=== PATIENT | male | born 1980 | race American Indian/Alaskan Native ===

== ENCOUNTER 2016-10-13 22:49 | Emergency (ER) | payer OTHER ==
[2016-10-13 23:12] VITALS: BP 121/67
--- NOTE | 2016-10-13 23:20 | EDM.PDOC ---
ED HPI GENERAL MEDICAL PROBLEM - General Chief Complaint: Headache Stated Complaint: [facility] Time Seen by Provider: 10/13/16 23:19 - History of Present Illness INITIAL COMMENTS - FREE TEXT/NARRATIVE: 36-year-old male brought in by EMS with a severe headache. Patient has a remarkable history of having a stroke 2 months ago. This left him with fairly good motor function he has a significant expressive aphasia but he can work through it intercommunicate fairly well muscle strength is fairly well spared. Patient's headache was fairly sudden onset started a couple hours before coming in. But it is described as global he has associated photosensitivity and and is very sensitive to noise. The patient has a funny sensation all over and just generally feels shaky. This was worsened after he received his Zofran and Benadryl. After the patient stroke he was started on atorvastatin, clopidogrel and aspirin area he was recently started on Topamax. Headache Pain Score (Numeric/FACES): 9 - Related Data Allergies Allergy/AdvReac Type Severity Reaction Status Date / Time aspirin Allergy Lightheaded Verified 10/13/16 22:55 ness Home Meds: Home Meds GI Cocktail 30 ml PO TID PRN #300 ml 11/08/15 [Rx] Lactobac Cmb #3/Fos/Pantethine [Probiotic & Acidophilus] 2 tab PO TID 11/08/15 [ History] Mag Hydrox/Al Hydrox/Simeth [Maalox Maximum Strength Susp] 1 dose PO ASDIRECTED 11/08/15 [History] Ondansetron [Zofran ODT] 4 mg PO Q6H PRN #20 tab.dis 11/08/15 [Rx] Sucralfate [Carafate] 1 gm PO TIDAC PRN #20 tablet 11/08/15 [Rx] oxyCODONE HCl/Acetaminophen [Percocet 5-325 mg Tablet] 1 - 2 each PO Q6HR PRN # 20 tablet 11/08/15 [Rx] Past Medical History HEENT History: Reports: Hard of Hearing, Impaired Vision Other HEENT History: Bilateral hearing aids, wears glasses Gastrointestinal History: Reports: Diverticulosis, Other (See Below) Other Gastrointestinal History: gastric bypass Endocrine/Metabolic History: Reports: Obesity/BMI 30+ Other Endocrine/Metabolic History: hypoglycemia - Past Surgical History GI Surgical History: Reports: Appendectomy, Bariatric Procedure, Colostomy Social & Family History - Tobacco Use Smoking Status *Q: Current Every Day Smoker Years of Tobacco use: 30 Packs/Tins Daily: 1 - Caffeine Use Caffeine Use: Reports: None - Recreational Drug Use Recreational Drug Use: No - Living Situation & Occupation Living situation: Reports: Single Occupation: Unemployed ED ROS GENERAL - Review of Systems Review Of Systems: See Below Constitutional: Reports: No Symptoms HEENT: Reports: No Symptoms, Other (He did have noise sensitivity and light sensitivity with a headache) Respiratory: Reports: No Symptoms Cardiovascular: Reports: No Symptoms. Denies: Chest Pain Endocrine: Reports: No Symptoms GI/Abdominal: Reports: No Symptoms : Reports: No Symptoms Musculoskeletal: Reports: No Symptoms Skin: Reports: No Symptoms Neurological: Reports: Headache. Denies: Confusion, Dizziness, Numbness, Seizure Psychiatric: Reports: No Symptoms. Denies: Agitation, Anxiety, Confusion, Mood Lability, Suicidal Ideation - Physical Exam Exam: See Below Exam Limited By: Other (The patient has an expressive aphasia however he is able to work around it by going slow and methodical) General Appearance: Alert, No Apparent Distress, Obese, Other (Before his headache resolved he was photophobic and very sensitive to noise) Eye Exam: Bilateral Eye: EOMI, Normal Inspection, PERRL Ears: Normal External Exam, Normal Canal, Hearing Grossly Normal, Normal TMs, Other (Evidence of chronic ear infections) Nose: Normal Inspection Throat/Mouth: Normal Inspection, Normal Oropharynx, Normal Voice, No Airway Compromise Head Exam: Atraumatic, Normocephalic Neck: Normal Inspection, Supple, Non-Tender, Full Range of Motion. No: Lymphadenopathy (L), Lymphadenopathy (R) Respiratory/Chest: No Respiratory Distress, Lungs Clear, Normal Breath Sounds Cardiovascular: Regular Rate, Rhythm, No Edema, No Murmur GI/Abdominal: Normal Bowel Sounds, Soft, Non-Tender, Other (Morbid obesity) Neuro Exam (Abbreviated): Other (Cranial nerves II through XII grossly intact he has an obvious expressive aphasia all muscle groups the upper extremities recall appropriate deep tendon reflexes are equal and appropriate at the brachial radialis bilaterally) Back Exam: Normal Inspection. No: CVA Tenderness (L), CVA Tenderness (R) Extremities: Normal Inspection, No Pedal Edema Psychiatric: Normal Affect, Normal Mood Course - Vital Signs Last Recorded V/S: Last Vital Signs Temp 36.7 C 08/29/17 22:56 Pulse 79 10/13/16 22:56 Resp 18 10/13/16 22:56 BP 121/67 10/13/16 22:56 Pulse Ox 97 10/13/16 22:56 - Orders/Labs/Meds Orders: Active Orders 24 hr Category Date Time Status EKG Documentation Completion [RC] STAT Care 10/14/16 00:10 Active Chest 1V Frontal [CR] Stat Exams 10/14/16 00:10 Taken Head wo Cont [CT] Stat Exams 10/13/16 23:16 Ordered Labs: Laboratory Tests 10/13/16 10/13/16 10/13/16 Range/Units 23:22 23:22 23:22 WBC 10.83 H (4.23-9.07) K/mm3 RBC 5.74 (4.63-6.08) M/mm3 Hgb 13.2 L (13.7-17.5) gm/L Hct 40.7 (40.1-51.0) % MCV 70.9 L (79.0-92.2) fl MCH 23.0 L (25.7-32.2) pg MCHC 32.4 (32.2-35.5) g/dl RDW Std Deviation 53.1 H (35.1-43.9) fL Plt Count 266 (163-337) K/mm3 MPV 10.0 (9.4-12.3) fl Neut % (Auto) 70.5 H (34.0-67.9) % Lymph % (Auto) 18.5 L (21.8-53.1) % [place] % (Auto) 8.8 (5.3-12.2) % Eos % (Auto) 1.7 (0.8-7.0) Baso % (Auto) 0.3 (0.1-1.2) % Neut # (Auto) 7.65 H (1.78-5.38) K/mm3 Lymph # (Auto) 2.00 (1.32-3.57) K/mm3 [place] # (Auto) 0.95 H (0.30-0.82) K/mm3 Eos # (Auto) 0.18 (0.04-0.54) K/mm3 Baso # (Auto) 0.03 (0.01-0.08) K/mm3 Manual Slide Review Abnormal smear PT 10.5 (8.0-13.0) SECONDS INR 0.97 APTT 25 (22-36) SECONDS Sodium 140 (136-145) mEq/L Potassium 3.5 (3.5-5.1) mEq/L Chloride 106 (98-107) mEq/L Carbon Dioxide 26 (21-32) mEq/L Anion Gap 11.5 (5-15) BUN 6 L (7-18) mg/dL Creatinine 0.9 (0.7-1.3) mg/dL Est Cr Clr Drug Dosing 118.53 mL/min Estimated GFR (MDRD) > 60 (>60) mL/min BUN/Creatinine Ratio 6.7 L (14-18) Glucose 92 (74-106) mg/dL POC Glucose (70-105) mg/dL Calcium 8.9 (8.5-10.1) mg/dL Troponin I (0.00-0.056) ng/mL 10/13/16 10/14/16 Range/Units 23:22 00:18 WBC (4.23-9.07) K/mm3 RBC (4.63-6.08) M/mm3 Hgb (13.7-17.5) gm/L Hct (40.1-51.0) % MCV (79.0-92.2) fl MCH (25.7-32.2) pg MCHC (32.2-35.5) g/dl RDW Std Deviation (35.1-43.9) fL Plt Count (163-337) K/mm3 MPV (9.4-12.3) fl Neut % (Auto) (34.0-67.9) % Lymph % (Auto) (21.8-53.1) % [place] % (Auto) (5.3-12.2) % Eos % (Auto) (0.8-7.0) Baso % (Auto) (0.1-1.2) % Neut # (Auto) (1.78-5.38) K/mm3 Lymph # (Auto) (1.32-3.57) K/mm3 [place] # (Auto) (0.30-0.82) K/mm3 Eos # (Auto) (0.04-0.54) K/mm3 Baso # (Auto) (0.01-0.08) K/mm3 Manual Slide Review PT (8.0-13.0) SECONDS INR APTT (22-36) SECONDS Sodium (136-145) mEq/L Potassium (3.5-5.1) mEq/L Chloride (98-107) mEq/L Carbon Dioxide (21-32) mEq/L Anion Gap (5-15) BUN (7-18) mg/dL Creatinine (0.7-1.3) mg/dL Est Cr Clr Drug Dosing mL/min Estimated GFR (MDRD) (>60) mL/min BUN/Creatinine Ratio (14-18) Glucose (74-106) mg/dL POC Glucose 83 (70-105) mg/dL Calcium (8.5-10.1) mg/dL Troponin I < 0.017 (0.00-0.056) ng/mL Meds: Medications Discontinued Medications Generic Name Dose Route Start Last Admin Trade Name Freq PRN Reason Stop Dose Admin Diphenhydramine HCl 50 mg 10/13/16 23:36 10/13/16 23:40 Benadryl IVPUSH 10/13/16 23:37 50 mg ONETIME ONE Administration Ondansetron HCl 4 mg 10/13/16 23:36 10/13/16 23:40 Zofran IVPUSH 10/13/16 23:37 4 mg ONETIME ONE Administration - Re-Assessments/Exams Free Text/Narrative Re-Assessment/Exam: 10/14/16 01:08 Patient was initially evaluated in his symptoms are somewhat concerning he was sent to CT. Patient was given Benadryl and Zofran at about the time he got this his headache resolved. When he came back from CT he was a little shaky. EKG shows normal sinus rhythm mild baseline artifact axis and intervals normal no acute ST-T wave changes he has some mild nondiagnostic ST-T wave changes head CT shows some encephalomalacia in the left insular cortex and in the left temporal lobe as well as the right parietal occipital lobe portable chest x-ray shows dextrocardia no acute changes. Laboratory evaluation is unrevealing 10/14/16 02:22 Patient is doing well at this time no headache he feels back to normal. He's been able to eat and drink we will discharge. Departure - Departure Time of Disposition: 02:22 Disposition: Home, Self-Care 01 Clinical Impression: Headache, Shakiness - Discharge Information Referrals: PCP,None [Primary Care Provider] - Forms: ED Department Discharge Additional Instructions: Return to the emergency room with any questions problems worsening symptoms. Follow-up with your regular provider later this week for recheck. You need to carry a list of all of your medications with doses. Eat regular meals with snacks in between and a snack at bedtime. Drink plenty of fluids. - My Orders Last 24 Hours: My Active Orders 10/13/16 23:16 Head wo Cont [CT] Stat 10/14/16 00:10 EKG Documentation Completion [RC] STAT Chest 1V Frontal [CR] Stat - Assessment/Plan Last 24 Hours: My Active Orders 10/13/16 23:16 Head wo Cont [CT] Stat 10/14/16 00:10 EKG Documentation Completion [RC] STAT Chest 1V Frontal [CR] Stat
[2016-10-13] MEDS ORDERED: diphenhydrAMINE 50 MG/ML SDV IVPUSH ONE (23:36)
[2016-10-13] MEDS ORDERED: Ondansetron 4 MG/2 ML SDV IVPUSH ONE (23:36)
--- NOTE | 2016-10-15 09:23 | CT ---
Head CT Technique: Multiple axial sections through the brain were obtained. Intravenous contrast was not utilized. Comparison: No previous head CT. Findings: Encephalomalacia presumably representing old infarct is seen within the left temporal lobe, insular cortex and portion of the posterior left parietal region. Smaller area of encephalomalacia is seen within the posterior right parietal-occipital regions likely representing additional infarct. Ventricles along with basal cisterns and sulci over the convexities are mildly prominent. No other abnormal parenchymal densities are seen. No evidence of intracranial hemorrhage. No midline shift or mass effect is seen. Bone window settings were reviewed which show several small retention cyst within the maxillary sinus which is felt to be incidental. No acute calvarial abnormality is seen. Impression: 1. Findings of encephalomalacia on both sides most likely representing old infarcts. 2. Minimal sinus findings which are felt to be incidental. 3. No acute intracranial abnormality is appreciated. Diagnostic code #2 I agree with preliminary report issued by [facility] ([facility] preliminary report dictated on 10/14/16, 1:16 AM Central Time) ZENIA
--- NOTE | 2016-10-15 09:25 | CR ---
Chest: Portable view of the chest was obtained. Comparison: Previous chest x-ray of 11/04/15. Heart size is slightly enlarged which is felt compatible with change from portable technique. Upper mediastinum felt to be within normal limits. Lungs are clear. Bony structures are grossly intact. Impression: 1. Nothing acute is definitely seen on portable chest x-ray. Diagnostic code #2 MTDD
== END 2016-10-14 05:47 | disposition home or self-care (01) ==
LOC: JD.ED 22:49
DX: R51 Headache (principal); R25.8 Other abnormal involuntary movements; E66.9 Obesity, unspecified; Z98.84 Bariatric surgery status; Z90.49 Acquired absence of other specified parts of digestive tract; F17.210 Nicotine dependence, cigarettes, uncomplicated; Z93.3 Colostomy status; Z88.6 Allergy status to analgesic agent; Z79.02 Long term (current) use of antithrombotics/antiplatelets; Z68.43 Body mass index [BMI] 50.0-59.9, adult
CPT/HCPCS: 36415; 70450; 71010; 80048; 82962; 84484; 85025; 85610; 85730; 93005; 96374; 96375; 99285; J1200; J2405; 99284

== ENCOUNTER 2017-07-24 20:28 | Emergency (ER) | payer OTHER ==
[2017-07-24 20:43] VITALS: BP 130/73
--- NOTE | 2017-07-24 22:48 | EDM.PDOC ---
ED HPI GENERAL MEDICAL PROBLEM - General Chief Complaint: Neurological Problem Stated Complaint: [facility] Time Seen by Provider: 07/24/17 21:44 Source of Information: Reports: Patient, Family (Sister, brother) History Limitations: Reports: Physical Impairment (Some cognitive difficulty) - History of Present Illness INITIAL COMMENTS - FREE TEXT/NARRATIVE: The patient states that he suffered a stroke around July 2016, leaving him with an expressive aphasia, left facial weakness, and weakness to his left hand. 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 The patient underwent routine blood work this past , 07/22/2017. He was called later that day, and instructed to go to the [place] ER, because his D-dimer was elevated. A CT angiogram of the chest was performed - a copy of the report was brought with the patient - indicating that he had a faint defect to a posterior segmental branch of the left upper lobe, which was interpreted as a tiny pulmonary embolus. No anticoagulation was started. The patient is now brought to the ED because of acting differently around 19:00 tonight. He states that he had a left-sided headache, consistent with a migraine , then became diaphoretic and flushed. He states that he couldn't see, and had difficulty understanding. His symptoms resolved around 20:00, en route to the ED , after he was given IVF per EMS. Here in the ED, he states that he has a bitemporal headache, achy in character. The patient has an appointment to see a Neurologist at [facility] on 2017. Left Headache Pain Score (Numeric/FACES): 3 - Related Data Allergies Allergy/AdvReac Type Severity Reaction Status Date / Time No Known Allergies Allergy Verified 07/24/17 20:44 Home Meds: Home Meds Aspirin 81 mg PO DAILY 07/24/17 [History] Cholecalciferol (Vitamin D3) [Vitamin D3] 5,000 unit PO DAILY 07/24/17 [History] Clopidogrel [Plavix] 75 mg PO DAILY 07/24/17 [History] Past Medical History HEENT History: Reports: Hard of Hearing, Impaired Vision Other HEENT History: Bilateral hearing aids, wears glasses Cardiovascular History: Reports: Other (See Below) (PFO) Gastrointestinal History: Reports: Diverticulosis Neurological History: Reports: CVA, Migraines Endocrine/Metabolic History: Reports: Obesity/BMI 30+ - Past Surgical History Respiratory Surgical History: Reports: Tracheostomy GI Surgical History: Reports: Appendectomy, Bariatric Procedure (Gastric bypass 2009), Colostomy (reversed), Hernia, Abdominal Social & Family History - Family History Cardiac: Reports: [facility] GI: Reports: Cirrhosis Endocrine/Metabolic: Reports: Diabetes, type II Oncologic: Reports: Brain, Lung - Tobacco Use Smoking Status *Q: Current Every Day Smoker Years of Tobacco use: 21 Packs/Tins Daily: 1 - Caffeine Use Caffeine Use: Reports: Coffee - Alcohol Use Alcohol Use History: Yes Alcohol Use Frequency: Socially (occasionally to excess) - Recreational Drug Use Recreational Drug Use: No - Living Situation & Occupation Living situation: Reports: Single, with Family (Brother) Occupation: Unemployed ED ROS GENERAL - Review of Systems Review Of Systems: ROS reveals no pertinent complaints other than HPI. ED EXAM, NEURO - Physical Exam Exam: See Below Exam Limited By: No Limitations General Appearance: Alert, WD/WN, No Apparent Distress Eye Exam: Bilateral Eye: Normal Inspection Ears: Normal External Exam, Hearing Grossly Normal, Hearing Loss Nose: Normal Inspection, No Blood Throat/Mouth: Normal Inspection, Normal Lips, Normal Voice, No Airway Compromise , Other (Very poor dentition) Head Exam: Atraumatic, Normocephalic Neck: Normal Inspection, Full Range of Motion Respiratory/Chest: No Respiratory Distress, Lungs Clear, Normal Breath Sounds, No Accessory Muscle Use Cardiovascular: Normal Peripheral Pulses, Regular Rate, Rhythm, No Gallop, No JVD, No Murmur, No Rub GI/Abdominal: Normal Bowel Sounds, Soft, Non-Tender, No Organomegaly, No Distention, No Abnormal Bruit, No Mass, Other (Obese) (Male) Exam: Deferred Rectal (Males) Exam: Deferred Neurological: Alert, Normal Dorsiflexion, CN II-XII Intact, Normal Plantar Flexion, No Motor/Sensory Deficits, Oriented x 3 Back Exam: Normal Inspection, Full Range of Motion, NT Extremities: Normal Inspection, Normal Range of Motion, Normal Capillary Refill Psychiatric: Other (Somewhat labile mood) Skin Exam: Warm, Dry, Intact, Normal Color, No Rash EKG INTERPRETATION EKG Date: 07/24/17 Time: 22:38 Rhythm: NSR Rate (Beats/Min): 75 [place]: Normal P-Wave: Present QRS: Normal (Early transition) ST-T: Normal QT: Normal Comparison: No Change (10/14/2016) Course - Vital Signs Last Recorded V/S: Last Vital Signs Temp 36.8 C 07/24/17 20:33 Pulse 81 07/24/17 20:33 Resp 16 07/24/17 20:33 BP 130/73 07/24/17 20:33 Pulse Ox 93 L 07/24/17 20:33 - Orders/Labs/Meds Labs: Laboratory Tests 07/24/17 07/24/17 Range/Units 22:40 22:40 WBC 10.11 H (4.23-9.07) K/mm3 RBC 5.92 (4.63-6.08) M/mm3 Hgb 13.0 L (13.7-17.5) gm/L Hct 41.3 (40.1-51.0) % MCV 69.8 L (79.0-92.2) fl MCH 22.0 L (25.7-32.2) pg MCHC 31.5 L (32.2-35.5) g/dl RDW Std Deviation 51.1 H (35.1-43.9) fL Plt Count 264 (163-337) K/mm3 MPV 9.5 (9.4-12.3) fl Neutrophils % (Manual) 67 H (40-60) % Band Neutrophils % 0 (0-10) % Lymphocytes % (Manual) 17 L (20-40) % Atypical Lymphs % 3 % Monocytes % (Manual) 13 H (2-10) % Eosinophils % (Manual) 0 L (0.8-7.0) % Basophils % (Manual) 0 L (0.2-1.2) Platelet Estimate Adequate Plt Morphology Comment Normal Poikilocytosis 1+ slight Anisocytosis 1+ slight Microcytosis 1+ slight Macrocytosis 1+ slight Ovalocytes 1+ slight RBC Morph Comment Abnormal Sodium 141 (136-145) mEq/L Potassium 4.0 (3.5-5.1) mEq/L Chloride 106 (98-107) mEq/L Carbon Dioxide 27 (21-32) mEq/L Anion Gap 12.0 (5-15) BUN 6 L (7-18) mg/dL Creatinine 0.9 (0.7-1.3) mg/dL Est Cr Clr Drug Dosing 117.37 mL/min Estimated GFR (MDRD) > 60 (>60) mL/min BUN/Creatinine Ratio 6.7 L (14-18) Glucose 93 (74-106) mg/dL Calcium 8.5 (8.5-10.1) mg/dL Magnesium 1.9 (1.8-2.4) mg/dl Total Bilirubin 0.5 (0.2-1.0) mg/dL AST 18 (15-37) U/L ALT 26 (16-63) U/L Alkaline Phosphatase 133 H (46-116) U/L Troponin I < 0.017 (0.00-0.056) ng/mL Total Protein 7.3 (6.4-8.2) g/dl Albumin 3.0 L (3.4-5.0) g/dl Globulin 4.2 gm/dL Albumin/Globulin Ratio 0.7 L (1-2) - Re-Assessments/Exams Free Text/Narrative Re-Assessment/Exam: 07/24/17 23:33 CT of the head without contrast is read by [facility] as: 1. Soft tissue density is again noted along the lateral wall to the right sphenoid sinus adjacent to the carotid canal. Although this may represent a small polyp versus retention cyst, however dehiscence of the sinus wall with protrusion of the right internal carotid artery into the sphenoid sinus is not totally excluded. No evidence of acute sinusitis. 2. No acute intracranial hemorrhage or mass effect. 07/25/17 00:15 Test results discussed with the patient, his brother, and sister. Today's workup is grossly unremarkable. He is not significantly anemic, his electrolytes are all normal, his troponin and ECG are unremarkable, and the CT scan of his head, while it shows abnormalities, does not demonstrate any new changes. I suspect that the patient's symptoms may have been related to a migraine, although it is unusual that they resolved with IV fluid alone, which suggests a psychiatric component. I believe the patient may safely be discharged home, and I requested that he follow-up with his PCP this week. Departure - Departure Time of Disposition: 00:17 Disposition: Home, Self-Care 01 Condition: Good Clinical Impression: Headache, Altered mental status, unspecified - Discharge Information Instructions: General Headache Without Cause, [id number] Referrals: PCP,Not In Area [Primary Care Provider] - Forms: ED Department Discharge Additional Instructions: You were seen in the emergency room after experiencing altered mental status and a headache. Workup in the ER included blood work, a CT scan of your head, and an ECG. Your entire workup was unremarkable, and does not explain the cause of your symptoms. It is possible that you suffered a migraine. We recommend that you continue your usual medications, as prescribed, then follow-up with your primary care physician this week. If any other problems, please do not hesitate to return to the ER.
--- NOTE | 2017-07-26 11:27 | CT ---
Head CT Technique: Multiple axial sections through the brain were obtained. Intravenous contrast was not utilized. Comparison: Prior head CT exam of 10/13/16. Findings: Old infarcts are noted within the left temporoparietal region and within the posterior right parietal region. No other abnormal parenchymal densities are seen. No evidence of intracranial hemorrhage. No midline shift or mass effect is seen. Ventricles along with basal cisterns and sulci over the convexities are mildly prominent. Soft tissue density is seen within the right sphenoid sinus which is believed to represent incidental retention cyst which is stable. Other visualized sinuses are clear. No acute calvarial abnormality is seen. Impression: 1. Old infarcts as noted above. 2. Stable retention cyst within the right sphenoid sinus. 3. No acute intracranial abnormality is identified. Diagnostic code #2 I agree with preliminary report issued by [facility] ([facility] preliminary report dictated on 07/25/17, 12:10 AM Central Time)
== END 2017-07-25 00:36 | disposition home or self-care (01) ==
LOC: JD.ED 20:28
DX: R41.82 Altered mental status, unspecified (principal); R51 Headache; E66.9 Obesity, unspecified; F17.210 Nicotine dependence, cigarettes, uncomplicated; Z79.899 Other long term (current) drug therapy; Z79.82 Long term (current) use of aspirin
CPT/HCPCS: 36415; 70450; 70450-26; 80053; 83735; 84484; 85007; 85027; 93005; 93010; 99284-25; 99285-25